=== PATIENT | female | born 1980 | race Two or more races ===

== ENCOUNTER 2017-01-15 17:17 | Emergency (ER) | payer OTHER ==
[~2017-01-15] VITALS: Ht 157.5 cm; Wt 76.8 kg
[2017-01-15 17:55] VITALS: Ht 157.5 cm; Wt 76.8 kg
--- NOTE | 2017-01-15 20:43 | ERD ---
ER Documentation Chief Complaint Date/Time DATE: 01/15/17 TIME: 20:41 Chief Complaint FOLET CATHETER RE CHECK - IT WAS PLACED YESTERDAY HPI Patient is a 36-year-old female who is A1 who presents to the ED with a Sky catheter removal who is approximately 12 weeks . She states that her last normal menstrual period was sometime in September.. She states that yesterday she went to the ER at the [facility] for urinary retention and a catheter was placed. She states that she has discomfort at the catheter area. Denies pelvic pain or vaginal bleeding. Denies headache or dizziness. Denies chest pain or cough or shortness of breath. Patient does not have an OB doctor. Patient is requesting referral to an OB doctor ROS All systems reviewed and are negative except as per history of present illness. Medications Home Meds Active Scripts Nitrofurantoin Monohyd Macrocr* (Macrobid*) 100 Mg Capsr, 100 MG PO BID for 7 Days, CAP Prov:LIBRADO COHEN PA-C 01/15/17 Allergies Allergies: Coded Allergies: No Known Allergy (Unverified , 04/03/14) PMhx/Soc Medical and Surgical Hx: pt denies Medical Hx, pt denies Surgical Hx History of Surgery: No Anesthesia Reaction: No Hx Neurological Disorder: No Hx Respiratory Disorders: No Hx Cardiac Disorders: No Hx Psychiatric Problems: No Hx Miscellaneous Medical Probl: No Hx Alcohol Use: No Hx Substance Use: No Hx Tobacco Use: No Smoking Status: Never smoker FmHx Family History: No coronary disease, No diabetes, No other Physical Exam Vitals Vital Signs Date Time Temp Pulse Resp B/P Pulse Ox O2 Delivery O2 Flow Rate FiO2 01/15/17 17:55 98.4 76 19 114/74 96 Physical Exam GENERAL: Well-developed, well-nourished female. Appears in no acute distress. HEAD: Normocephalic, atraumatic. EYES: Pupils are equally reactive bilaterally. EOMs grossly intact. No conjunctival erythema. ENT: Moist mucous membranes. No uvula deviation. No kissing tonsils. No exudates. NECK: Supple. No lymphadenopathy or thyromegaly. No meningismus. negative kernig. negative brudinski. LUNG: Clear to auscultation bilaterally. No rhonchi, wheezing, rales or coarse breath sounds. HEART: Regular rate and rhythm. No murmurs, rubs or gallops. ABDOMEN: No scars, ecchymosis or rashes noted. Soft, nontender, and nondistended. Positive bowel sounds in all four quadrants. No rebound tenderness , no guarding. (-) McBurneys point tenderness. No CVA tenderness. BACK: No midline tenderness. Extremities: Equal pulses bilaterally. No peripheral clubbing, cyanosis or edema. No unilateral leg swelling. NEUROLOGIC: Alert and oriented. Moving all four extremities. 5/5 strength in all extremities. Normal speech. Steady gait. SKIN: Normal color. Warm and dry. No rashes or lesions. Capillary refill < 2 seconds Result Diagram: 01/15/172057 Results 24 hrs Laboratory Tests Test 01/15/17 20:50 01/15/17 20:58 Urine Color LT. YELLOW Urine Clarity HAZY Urine pH 6.0 Urine Specific [place] <=1.005 Urine Ketones NEGATIVE Urine Nitrite NEGATIVE Urine Bilirubin NEGATIVE Urine Urobilinogen 0.2 E.U./dL Urine Leukocyte Esterase 1+ Urine Microscopic RBC 10-25/HPF Urine Microscopic WBC 5-10/HPF Urine Squamous Epithelial Cells MODERATE Urine Bacteria FEW Urine Hemoglobin 3+ Urine Glucose NEGATIVE% Urine Total Protein NEGATIVE White Blood Count 10.710^3/ul Red Blood Count 4.1710^6/ul Hemoglobin 12.5g/dl Hematocrit 36.3% Mean Corpuscular Volume 87.1fl Mean Corpuscular Hemoglobin 30.0pg Mean Corpuscular Hemoglobin Concent 34.4g/dl Red Cell Distribution Width 13.9% Platelet Count 61690^3/UL Mean Platelet Volume 9.8fl Neutrophils % 72.7% Lymphocytes % 20.4% Monocytes % 5.3% Eosinophils % 1.0% Basophils % 0.2% Nucleated Red Blood Cells % 0.0/100WBC Neutrophils # 7.810^3/ul Lymphocytes # 2.210^3/ul Monocytes # 0.610^3/ul Eosinophils # 0.110^3/ul Basophils # 0.010^3/ul Nucleated Red Blood Cells # 0.010^3/ul Beta HCG, Quantitative 95867.0mIU/ml Procedures/MDM ER COURSE: I kept the patient and/or family informed of laboratory and diagnostic imaging results throughout the emergency room course. EKG, MONITORS, & DIAGNOSTIC IMAGING: [place] [id number] Radiology Main Line: [phone] DIAGNOSTIC IMAGING REPORT Patient: LUCERO LY : 1980 Age: 36 Sex: F MR #: [id number] DOS: 01/15/17 0000 Ordering MD: LIBRADO COHEN PA-C Location: [facility] Room/Bed: PROCEDURE: US OB. CLINICAL INDICATION: Pelvic pain. . TECHNIQUE: Transabdominal and transvaginal views of the pelvis are available for review. COMPARISON: No prior studies are available for comparison. FINDINGS: [place]-rump length: 8.31 cm heart rate: 143 bpm Ultrasound estimated gestational age: 14 weeks 1 day Placenta is anterior and grade 0. No ovarian or adnexal mass lesion is seen. There is no free fluid. RPTAT:HJJR IMPRESSION: 1. Single live intrauterine with an estimated gestational age of 14 weeks 1 day, the estimated date of delivery 07/15/2017. 2. Anterior grade 0 placenta without evidence of abruption. Physician Rd Date Time Electronically viewed and signed by Physician Rd on 01/15/2017 21:01 JR/ CC: LIBRADO COHEN PA-C LAB INTERPRETATION: CBC showed no evidence of systemic infection or severe anemia. UA showed 1+ leukocytes with no nitrites or hematuria MEDICAL DECISION MAKING: This is a 36-year-old female who is A1 who presents to the ED with Sky catheter removal. Vital signs were reviewed. Patient is afebrile. Patient is not hypoxic. Patient is not toxic or ill-appearing. Sky catheter was removed without complications. Patient was able to urinate and did not show signs of urinary retention. Her urine did show signs of urinary tract infection. Patient will be treated outpatiently Her ultrasound is read by radiologist shows a single live intrauterine . Low suspicion for ovarian torsion, PID, tuboovarian abscess, ectopic , bowel obstruction , pyelonephritis, UTI, appendicitis, cervicitis, septic , molar , HELLP syndrome, preeclampsia, eclampsia, placenta previa, placenta abruptia. Patient does not show signs of dehydration DISCHARGE: At this time, patient is stable for discharge and outpatient management with no new complaints during the ER course. Patient was sent home with Macrobid for infection in the list of OB doctors to follow-up with.. Patient will be discharged home with instructions to recheck for new or worsening symptoms such as fever, nausea, weakness, LOC and to follow up with primary care in the next 1 -2 days. Patient was advised to return to the ER for any new or worsening symptoms. Plan was discussed and patient and/or family understands and agrees. Home instructions were given. Departure Diagnosis: Primary Impression: Encounter for Sky catheter removal Condition: Stable LIBRADO COHEN PA-C Jan 15, 2017 20:42
--- NOTE | 2017-01-15 21:01 | RADRPT ---
PROCEDURE: US OB. CLINICAL INDICATION: Pelvic pain. . TECHNIQUE: Transabdominal and transvaginal views of the pelvis are available for review. COMPARISON: No prior studies are available for comparison. FINDINGS: [place]-rump length:8.31 cm heart rate:143 bpm Ultrasound estimated gestational age:14 weeks 1 day Placenta is anterior and grade 0. No ovarian or adnexal mass lesion is seen. There is no free fluid. RPTAT:HJJR IMPRESSION: 1. Single live intrauterine with an estimated gestational age of 14 weeks 1 day, the srinath mated date of delivery 07/15/2017. 2. Anterior grade 0 placenta without evidence of abruption. Physician Rd Date Time Electronically viewed and signed by Aditya Puri Physician on 01/15/2017 21:01 /
[2017-01-15 21:03] LABS: ADD UMIC YES; URINE BILIRUBIN (Dip) NEGATIVE (NEGATIVE); URINE BLOOD (Dip) 3+ (NEGATIVE); URINE COLOR LT. YELLOW (YELLOW); URINE GLUCOSE (Dip) NEGATIVE (NEGATIVE); URINE KETONES (Dip) NEGATIVE (NEGATIVE); URINE LEUKOCYTE ESTERASE (Dip) 1+ (NEGATIVE); URINE NITRITE (Dip) NEGATIVE (NEGATIVE); URINE TOTAL PROTEIN (Dip) NEGATIVE (NEGATIVE); URINE UROBILINOGEN (Dip) 0.2 E.U./dL (0.1-1.0)
[2017-01-15 21:16] LABS: ADD SCAN DIFF NO
[2017-01-15 21:17] LABS: BACTERIA,URINE FEW; SQUAMOUS EPITHELIAL CELL,UR MODERATE
[2017-01-15 21:19] LABS: BASOPHILS % 0.2 % (0.0-2.0); EOSINOPHILS # 0.1 10^3/ul (0.0-0.5); HEMATOCRIT 36.3 % (37.0-47.0); HEMOGLOBIN 12.5 g/dl (12.0-16.0); LYMPHOCYTES # 2.2 10^3/ul (0.8-2.9); LYMPHOCYTES % 20.4 % (15.0-51.0); MEAN CORPUSCULAR HGB CONC 34.4 g/dl (32.0-37.0); MEAN CORPUSCULAR VOLUME 87.1 fl (82.0-101.0); MEAN PLATELET VOLUME 9.8 fl (7.4-10.4); MONOCYTE # 0.6 10^3/ul (0.3-0.9); MONOCYTES % 5.3 % (0.0-11.0); NEUTROPHIL # 7.8 10^3/ul (1.6-7.5); NEUTROPHILS % 72.7 % (39.0-77.0); PLATELET COUNT 349 10^3/UL (140-415); RED BLOOD COUNT 4.17 10^6/ul (4.20-5.40); RED CELL DISTRIBUTION WIDTH 13.9 % (11.5-14.5); WHITE BLOOD COUNT 10.7 10^3/ul (4.8-10.8)
[2017-01-15] MEDS ORDERED: NITR-58 PO (22:59)
[2017-01-15 23:15] VITALS: BP 111/70; PULSE 67; RESP 20; TEMP 98
== END 2017-01-15 23:17 | disposition home or self-care (01) ==
LOC: FTE 17:17
DX: O99.89 Other specified diseases and conditions complicating pregnancy, childbirth and the puerperium (principal); R10.2 Pelvic and perineal pain; Z3A.14 14 weeks gestation of pregnancy; Z46.6 Encounter for fitting and adjustment of urinary device
CPT/HCPCS: 76801; 81001; 84702; 85025; 87086; Z7502